=== PATIENT | male | born 1970 | race Caucasian/White ===

== ENCOUNTER 2020-12-05 13:01 | Emergency (ER) | payer OTHER ==
[2020-12-05] MEDS ORDERED: Sodium Chloride 0.9% 1,000 ML IV ONE (13:18)
[2020-12-05 13:20] VITALS: BP 125/84; PULSE 76
[2020-12-05 13:47] LABS: ANION GAP 17.5 mEq/L (7-13)
--- NOTE | 2020-12-05 13:47 | EDM.PDOC ---
ED HPI GENERAL MEDICAL PROBLEM - General Chief Complaint: Genitourinary Problem Stated Complaint: SIDE PAIN AND PASSING BLOOD [id number] Time Seen by Provider: 12/05/20 13:10 Source of Information: Reports: Patient History Limitations: Reports: No Limitations - History of Present Illness INITIAL COMMENTS - FREE TEXT/NARRATIVE: This 50 yo male patient reports to the ED with right sided lower back, right sided lower abdominal pain and blood in his urine. The patient reports his symptoms started today. The patient describes the paint an "annoying". The patient reports he did attempt to get an appointment in the Clinic, but was advised to go to the ED to be seen urgently. Onset: Today Duration: Hour(s):, Constant Location: Reports: Abdomen, Back Quality: Reports: Ache, Dull Severity: Moderate Improves with: Reports: None Worsens with: Reports: None Context: Reports: Other Associated Symptoms: Reports: No Other Symptoms Abdomen Pain Score (Numeric/FACES): 4 - Related Data Allergies Allergy/AdvReac Type Severity Reaction Status Date / Time amoxicillin Allergy Hives Verified 12/05/20 13:10 meperidine [From Demerol] Allergy Lightheaded Verified 12/05/20 13:10 ness Sulfa (Sulfonamide Allergy Hives Verified 12/05/20 13:10 Antibiotics) Home Meds: Home Meds Albuterol [Ventolin HFA] 2 puff INH Q4H PRN 09/04/14 [History] Fluticasone Propionate [Flonase] 2 spray INH DAILY 09/04/14 [History] Melatonin/Pyridoxine HCl (B6) [Melatonin 5 mg Tablet] 5 mg PO DAILY 09/04/14 [History] Aspirin [Aspirin EC] 325 mg PO DAILY 12/05/18 [History] Fexofenadine/Pseudoephedrine [Pam-D 12 Hour] 1 tab PO BID PRN 12/05/18 [History] Ibuprofen [Motrin] 800 mg PO Q6H PRN 12/05/18 [History] SUMAtriptan [Imitrex] 50 mg PO ASDIRECTED PRN 12/05/18 [History] Topiramate [Topamax] 25 mg PO ASDIRECTED 12/05/18 [History] Zolpidem Tartrate 5 mg PO BEDTIME 12/05/18 [History] traMADol HCl [Tramadol HCl] 50 mg PO Q6H PRN 12/05/18 [History] Past Medical History HEENT History: Reports: Allergic Rhinitis, Other (See Below) Other HEENT History: DEVIATED NASAL SEPTUM. NASAL POLYPS Cardiovascular History: Reports: High Cholesterol Respiratory History: Reports: Sleep Apnea Gastrointestinal History: Reports: Other (See Below) Other Gastrointestinal History: OCCULT BLOOD IN STOOL Genitourinary History: Reports: Renal Calculus, Other (See Below) Other Genitourinary History: KIDNEY STONE REMOVED Musculoskeletal History: Reports: Arthritis Neurological History: Reports: Migraines, Other (See Below) Other Neuro History: INSOMNIA Psychiatric History: Reports: None Endocrine/Metabolic History: Reports: [place]'s Disease, Obesity/BMI 30+ Hematologic History: Reports: None Immunologic History: Reports: None Oncologic (Cancer) History: Reports: None Dermatologic History: Reports: None - Infectious Disease History Infectious Disease History: Reports: Chicken Pox - Past Surgical History HEENT Surgical History: Reports: Naso-Sinus Surgery, Tonsillectomy Cardiovascular Surgical History: Reports: Other (See Below) Other Cardiovascular Surgeries/Procedures: ANGIOGRAM DUE TO BRADYCARDIA GI Surgical History: Reports: None Male Surgical History: Reports: None Endocrine Surgical History: Reports: None Musculoskeletal Surgical History: Reports: Arthroscopic Knee, Carpal Tunnel, Shoulder Surgery Other Musculoskeletal Surgeries/Procedures:: S/P TOE SURGERY RIGHT. S/P RIGHT HAND SURGERY. S/P CARPAL TUNNEL RELEASE RIGHT. S/P SHOULDER ARTHOSCOPY RIGHT. S/P MENISCUS REPAIR RIGHT KNEE Social & Family History - Family History Family Medical History: No Pertinent Family History - Caffeine Use Caffeine Use: Reports: Coffee, Soda Other Caffeine Use: 2 CUPS COFFEE. 1 CAN SODA DAILY ED ROS GENERAL - Review of Systems Review Of Systems: Comprehensive ROS is negative, except as noted in HPI. ED EXAM, RENAL/ - Physical Exam Exam: See Below Exam Limited By: No Limitations General Appearance: Alert, WD/WN, Moderate Distress Eye Exam: Bilateral Eye: EOMI, Normal Inspection, PERRL Ears: Normal External Exam, Normal Canal, Hearing Grossly Normal, Normal TMs Nose: Normal Inspection, Normal Mucosa, No Blood Throat/Mouth: Normal Inspection, Normal Lips, Normal Teeth, Normal Gums, Normal Oropharynx, Normal Voice, No Airway Compromise Head: Atraumatic, Normocephalic Neck: Normal Inspection, Supple, Non-Tender, Full Range of Motion Respiratory/Chest: No Respiratory Distress, Lungs Clear, Normal Breath Sounds, No Accessory Muscle Use, Chest Non-Tender Cardiovascular: Normal Peripheral Pulses, Regular Rate, Rhythm, No Edema, No Gallop, No JVD, No Murmur, No Rub GI/Abdominal: Tender (Right lower quadrant) (Male) Exam: Deferred Rectal (Males) Exam: Deferred Back Exam: CVA Tenderness (R) Extremities: Normal Inspection, Normal Range of Motion, Non-Tender, Normal Capillary Refill, No Pedal Edema Neurological: Alert, Oriented, CN II-XII Intact, Normal Cognition, Normal Gait, Normal Reflexes, No Motor/Sensory Deficits Psychiatric: Normal Affect, Normal Mood Skin Exam: Warm, Dry, Intact, Normal Color, No Rash Lymphatic: No Adenopathy Course - Vital Signs Last Recorded V/S: Last Vital Signs Temp 98.9 F 12/05/20 13:03 Pulse 76 12/05/20 13:03 Resp 16 12/05/20 13:03 BP 125/84 12/05/20 13:03 Pulse Ox 99 12/05/20 13:03 - Orders/Labs/Meds Orders: Active Orders 24 hr Category Date Time Status CULTURE BLOOD [BC] Stat Lab 12/05/20 13:11 Received LACTIC ACID [CHEM] Routine Lab 12/05/20 15:51 Ordered Labs: Laboratory Tests 12/05/20 12/05/20 12/05/20 Range/Units 13:11 13:11 13:11 WBC 5.0 (5.0-10.0) 10^3/uL RBC 5.00 (4.6-6.2) 10^6/uL Hgb 15.6 (14.0-18.0) g/dL Hct 43.4 (40.0-54.0) % MCV 86.8 (80-100) fL MCH 31.2 (27.0-34.0) pg MCHC 35.9 H (33.0-35.0) g/dL Plt Count 228 (150-450) 10^3/uL Neut % (Auto) 49.1 (42.2-75.2) % Lymph % (Auto) 40.7 (20.5-50.1) % Simpson % (Auto) 8.8 H (2-8) % Eos % (Auto) 0.8 L (1.0-3.0) % Baso % (Auto) 0.6 (0.0-1.0) % Sodium 141 (136-145) mmol/L Potassium 3.5 (3.5-5.1) mmol/L Chloride 107 (98-107) mmol/L Carbon Dioxide 20 L (21-32) mmol/L Anion Gap 17.5 H (7-13) mEq/L BUN 15 (7-18) mg/dL Creatinine 1.35 H (0.70-1.30) mg/dL Est Cr Clr Drug Dosing 58.42 mL/min Estimated GFR (MDRD) 56 BUN/Creatinine Ratio 11.1 (No establ ref range) Glucose 100 H (70-99) mg/dL Lactic Acid 2.2 H* (0.4-2.0) mmol/L Calcium 8.6 (8.5-10.1) mg/dL Total Bilirubin 0.7 (0.2-1.0) mg/dL AST 28 (15-37) U/L ALT 62 (16-63) U/L Alkaline Phosphatase 91 (46-116) U/L Total Protein 7.1 (6.4-8.2) g/dL Albumin 4.1 (3.4-5.0) g/dL Globulin 3.0 Albumin/Globulin Ratio 1.4 Urine Color (YELLOW) Urine Appearance (CLEAR) Urine pH (5.0-9.0) Ur Specific [place] (1.005-1.030) Urine Protein (NEGATIVE) Urine Glucose (UA) (NEGATIVE) Urine Ketones (NEGATIVE) Urine Occult Blood (NEGATIVE) Urine Nitrite (NEGATIVE) Urine Bilirubin (NEGATIVE) Urine Urobilinogen (0.2-1.0) mg/dL Ur Leukocyte Esterase (NEGATIVE) Urine RBC /HPF Urine WBC (0-5/HPF) /HPF Ur Epithelial Cells (NOT SEEN) /HPF Amorphous Sediment (NOT SEEN) /HPF Urine Bacteria (0-FEW/HPF) /HPF Urine Mucus (NOT SEEN) /LPF 12/05/20 Range/Units 14:51 WBC (5.0-10.0) 10^3/uL RBC (4.6-6.2) 10^6/uL Hgb (14.0-18.0) g/dL Hct (40.0-54.0) % MCV (80-100) fL MCH (27.0-34.0) pg MCHC (33.0-35.0) g/dL Plt Count (150-450) 10^3/uL Neut % (Auto) (42.2-75.2) % Lymph % (Auto) (20.5-50.1) % Simpson % (Auto) (2-8) % Eos % (Auto) (1.0-3.0) % Baso % (Auto) (0.0-1.0) % Sodium (136-145) mmol/L Potassium (3.5-5.1) mmol/L Chloride (98-107) mmol/L Carbon Dioxide (21-32) mmol/L Anion Gap (7-13) mEq/L BUN (7-18) mg/dL Creatinine (0.70-1.30) mg/dL Est Cr Clr Drug Dosing mL/min Estimated GFR (MDRD) BUN/Creatinine Ratio (No establ ref range) Glucose (70-99) mg/dL Lactic Acid (0.4-2.0) mmol/L Calcium (8.5-10.1) mg/dL Total Bilirubin (0.2-1.0) mg/dL AST (15-37) U/L ALT (16-63) U/L Alkaline Phosphatase (46-116) U/L Total Protein (6.4-8.2) g/dL Albumin (3.4-5.0) g/dL Globulin Albumin/Globulin Ratio Urine Color Yellow (YELLOW) Urine Appearance Turbid (CLEAR) Urine pH 6.0 (5.0-9.0) Ur Specific [place] 1.020 (1.005-1.030) Urine Protein 30 H (NEGATIVE) Urine Glucose (UA) Negative (NEGATIVE) Urine Ketones Negative (NEGATIVE) Urine Occult Blood Large H (NEGATIVE) Urine Nitrite Negative (NEGATIVE) Urine Bilirubin Negative (NEGATIVE) Urine Urobilinogen 0.2 (0.2-1.0) mg/dL Ur Leukocyte Esterase Negative (NEGATIVE) Urine RBC >100 H /HPF Urine WBC 0-5 (0-5/HPF) /HPF Ur Epithelial Cells Rare (NOT SEEN) /HPF Amorphous Sediment Moderate (NOT SEEN) /HPF Urine Bacteria Rare (0-FEW/HPF) /HPF Urine Mucus Rare (NOT SEEN) /LPF Meds: Medications Discontinued Medications Generic Name Dose Route Start Last Admin Trade Name Edie PRN Reason Stop Dose Admin Sodium Chloride 1,000 mls @ 999 mls/hr 12/05/20 13:18 12/05/20 13:18 Normal Saline IV 12/05/20 14:18 999 mls/hr .BOLUS ONE Administration Ketorolac Tromethamine 30 mg 12/05/20 14:52 12/05/20 15:04 Ketorolac 30 Mg/Ml Sdv IVPUSH 12/05/20 14:53 30 mg ONETIME ONE Administration Tamsulosin HCl 0.4 mg 12/05/20 14:52 12/05/20 15:03 Tamsulosin 0.4 Mg Cap.Er PO 12/05/20 14:53 0.4 mg ONETIME ONE Administration Departure - Departure Time of Disposition: 16:55 Disposition: Home, Self-Care 01 Condition: Fair Clinical Impression: Kidney stone - Discharge Information *PRESCRIPTION DRUG MONITORING PROGRAM REVIEWED*: Not Applicable *COPY OF PRESCRIPTION DRUG MONITORING REPORT IN PATIENT JOHN: Not Applicable Instructions: Kidney Stones, [id number] Forms: ED Department Discharge Care Plan Goals: The patient was advised of the examination, lab and CT results during the visit. The patient was given IV fluids, IV Toradol and an oral dose of Flomax while in the ED. The patient was discharged with a script for Toradol (10 mg) #20 to take 1 by mouth every 6 hours with food and Flomax (0.4 mg) #6 to take 1 by mouth daily for 10 days (starting tomorrow). The patient should follow-up with his primary care facility in about 1 week. If the patient has any additional symptoms or concerns, the patient should either return to the emergency department or visit his primary care facility. Sepsis Event Note (ED) - Focused Exam Vital Signs: Vital Signs Temp Pulse Resp BP Pulse Ox 12/05/20 13:03 98.9 F 76 16 125/84 99 - My Orders Last 24 Hours: My Active Orders 12/05/20 13:11 CULTURE BLOOD [BC] Stat 12/05/20 15:51 LACTIC ACID [CHEM] Routine - Assessment/Plan Last 24 Hours: My Active Orders 12/05/20 13:11 CULTURE BLOOD [BC] Stat 12/05/20 15:51 LACTIC ACID [CHEM] Routine
[2020-12-05] MEDS ORDERED: Ketorolac 30 MG/ML SDV IVPUSH ONE (14:52)
[2020-12-05] MEDS ORDERED: Tamsulosin 0.4 MG Cap.ER PO ONE (14:52)
--- NOTE | 2020-12-05 14:57 | CT ---
EXAMINATION: Abdomen Pelvis wo Cont SEX: Male AGE: 50 years CLINICAL HISTORY: 50-year-old 170 pound male with hematuria and right-sided"ache". Scan technique: Volume acquisition of data emergency unenhanced (renal stone study) CT exam of the abdomen and pelvis obtained with the patient lying supine on the Siemens multislice scanner [place], [place]. All data archived in the PACS system for storage, reformatting axial/sagittal/coronal planes and study. Interpretation: Abnormal. 1. Multiple calyceal calcifications identified in both kidneys and a large oval 4.0 x 7.0 mm in diameter calcification lodged at the ureteropelvic juncture asymptomatic left kidney. Punctate calcification prostate (urethra?) 2. No sign of ureteral calcifications or obstructive uropathy. No calcifications in the urinary bladder. 3. Gallbladder, inhomogeneously dense fatty liver, stomach, spleen, pancreas and adrenal glands anatomically correct. 4. No abdominal or pelvic mass lesion. No mesenteric or retroperitoneal lymphadenopathy. No inflammatory "dirty" peritoneal fat, signs of mechanical bowel obstruction, ascites or free intraperitoneal air. CONCLUSION: Bilateral nephrolithiasis. No current signs of obstructive uropathy.
== END 2020-12-05 17:14 | disposition home or self-care (01) ==
LOC: DL.ED 13:01
DX: N20.0 Calculus of kidney (principal); E78.00 Pure hypercholesterolemia, unspecified; E66.9 Obesity, unspecified; Z68.28 Body mass index [BMI] 28.0-28.9, adult; Z88.0 Allergy status to penicillin; Z88.2 Allergy status to sulfonamides; Z88.5 Allergy status to narcotic agent
CPT/HCPCS: 36415; 74176; 80053; 81001; 83605; 85025; 87040; 96374; 99284-25; A9270-GY; J1885; J7030

== ENCOUNTER 2022-01-22 09:11 | Emergency (ER) | payer OTHER ==
[2022-01-22 09:25] VITALS: BP 142/83; PULSE 60
== END 2022-01-22 09:35 ==
LOC: DL.ED 09:11
DX: Z53.21 Procedure and treatment not carried out due to patient leaving prior to being seen by health care provider (principal)

== ENCOUNTER 2022-07-13 11:58 | Emergency (ER) | payer OTHER ==
[2022-07-13] MEDS ORDERED: Sodium Chloride 0.9% 10 ML Syringe FLUSH PRN (12:29)
[2022-07-13] MEDS ORDERED: Sodium Chloride 0.9% 1,000 ML IV ONE (12:33)
[2022-07-13 13:18] LABS: ANION GAP 15.7 mEq/L (7-13)
[2022-07-13 13:28] LABS: CORONAVIRUS COVID-19 NAA NEGATIVE (NEGATIVE); RESPIRATORY SYNCYTIAL VIR NAA NEGATIVE (NEGATIVE)
[2022-07-13] MEDS ORDERED: Potassium Chloride 20 MEQ in Premix Bag 1 BAG IV ONE (13:41)
[2022-07-13] MEDS ORDERED: Lidocaine 1% 10 ML MDV ONE (13:44)
[2022-07-13] MEDS ORDERED: HYDROmorphone 0.5 MG/0.5 ML Syringe IVPUSH ONE (13:47)
[2022-07-13] MEDS ORDERED: Ondansetron 4 MG/2 ML SDV IV ONE (13:47)
[2022-07-13 15:05] VITALS: BP 139/86; PULSE 66
== END 2022-07-13 14:48 ==
LOC: DL.ED 11:58
DX: I62.9 Nontraumatic intracranial hemorrhage, unspecified (principal); E78.00 Pure hypercholesterolemia, unspecified; M19.90 Unspecified osteoarthritis, unspecified site; E66.9 Obesity, unspecified; Z68.31 Body mass index [BMI] 31.0-31.9, adult; Z79.82 Long term (current) use of aspirin; Z79.899 Other long term (current) drug therapy; Z88.0 Allergy status to penicillin; Z88.5 Allergy status to narcotic agent; Z88.2 Allergy status to sulfonamides; Z20.822 Contact with and (suspected) exposure to COVID-19
CPT/HCPCS: 0241U; 36415; 70450; 71045; 80053; 83605; 84484; 85025; 85730; 87081; 87430; 93005; 93010; 96361; 96365; 96375; 99285; J1170; J2405; J3480; J3490; J7030

== ENCOUNTER 2022-12-14 16:39 | Emergency (ER) | payer OTHER ==
[2022-12-14 17:03] VITALS: BP 133/79; PULSE 88
[2022-12-14 17:09] LABS: BASOPHILS PERCENT AUTO 0.4 % (0.0-1.0); EOSINOPHILS PERCENT AUTO 1.3 % (1.0-3.0); HEMATOCRIT 43.9 % (40.0-54.0); HEMOGLOBIN 15.3 g/dL (14.0-18.0); LYMPHOCYTES PERCENT AUTO 19.7 % (20.5-50.1); MEAN CORPUSCULAR HEMOGLOBIN 30.7 pg (27.0-34.0); MEAN CORPUSCULAR HGB CONC 34.9 g/dL (33.0-35.0); MEAN CORPUSCULAR VOLUME 88.2 fL (80-100); MONOCYTES PERCENT AUTO 12.2 % (2-8); NEUTROPHILS PERCENT AUTO 66.4 % (42.2-75.2); PLATELET COUNT,PLT 250 10^3/uL (150-450); RED BLOOD CELL COUNT 4.98 10^6/uL (4.6-6.2); WHITE BLOOD CELL COUNT,WBC 5.3 10^3/uL (5.0-10.0)
[2022-12-14] MEDS: levETIRAcetam in NaCl (iso-os) 1,500 MG in Premix Bag 1 BAG IV ONE ×2 (17:18)
[2022-12-14] MEDS: Sodium Chloride 0.9% 10 ML Syringe FLUSH PRN (17:18)
[2022-12-14] MEDS: Sodium Chloride 0.9% 1,000 ML IV ONE (17:18)
[2022-12-14] MEDS: Ondansetron 4 MG/2 ML SDV IVPUSH ONE (17:18)
[2022-12-14 17:31] LABS: LACTIC ACID 1.1 mmol/L (0.4-2.0)
[2022-12-14 17:38] LABS: ALBUMIN 3.8 g/dL (3.4-5.0); BILIRUBIN TOTAL 0.5 mg/dL (0.2-1.0); BUN/CREATININE RATIO 14.6 (No establ ref range); CALCIUM 9.3 mg/dL (8.5-10.1); CREATININE 1.3 mg/dL (0.70-1.30); EST CRCL DRUG DOSING (CG) 57.16 mL/min; MAGNESIUM 2.3 mg/dL (1.8-2.4); PROTEIN TOTAL,TP 7.5 g/dL (6.4-8.2)
[2022-12-14 17:41] LABS: INR 0.9 (0.9-1.2); PROTHROMBIN TIME 9.3 SEC (9.0-12.0); PTT,PARTIAL THROMBOPLSTIN TIME 27.6 SEC (22.0-34.0)
== END 2022-12-14 18:03 ==
LOC: DL.ED 16:39
DX: R56.9 Unspecified convulsions (principal); E66.9 Obesity, unspecified; Z68.32 Body mass index [BMI] 32.0-32.9, adult; Z79.899 Other long term (current) drug therapy; Z88.0 Allergy status to penicillin; Z88.5 Allergy status to narcotic agent; Z88.2 Allergy status to sulfonamides
CPT/HCPCS: 36415; 80053; 83605; 83735; 85025; 85610; 85730; 96365; 96375; 99284; 99285-25; J1953; J2405; J3490; J7030

== ENCOUNTER 2022-12-18 01:04 | Emergency (ER) | payer OTHER ==
[2022-12-18 01:09] VITALS: BP 148/95
[2022-12-18 01:11] VITALS: PULSE 72
[2022-12-18 01:29] LABS: BASOPHILS PERCENT AUTO 0.2 % (0.0-1.0); HEMATOCRIT 41.8 % (40.0-54.0); HEMOGLOBIN 14.8 g/dL (14.0-18.0); LYMPHOCYTES PERCENT AUTO 22.4 % (20.5-50.1); MEAN CORPUSCULAR HGB CONC 35.4 g/dL (33.0-35.0); MEAN CORPUSCULAR VOLUME 87.4 fL (80-100); MONOCYTES PERCENT AUTO 16.7 % (2-8); NEUTROPHILS PERCENT AUTO 60.7 % (42.2-75.2); PLATELET COUNT,PLT 271 10^3/uL (150-450); RED BLOOD CELL COUNT 4.78 10^6/uL (4.6-6.2); WHITE BLOOD CELL COUNT,WBC 4.6 10^3/uL (5.0-10.0)
[2022-12-18 01:56] LABS: A/G RATIO 0.9; ALBUMIN 3.8 g/dL (3.4-5.0); ANION GAP 15.2 mEq/L (7-13); BILIRUBIN TOTAL 0.4 mg/dL (0.2-1.0); BUN/CREATININE RATIO 16.8 (No establ ref range); C-REACTIVE PROTEIN 2.2 mg/dL (0.0-0.9); CALCIUM 9.5 mg/dL (8.5-10.1); CREATININE 1.13 mg/dL (0.70-1.30); EST CRCL DRUG DOSING (CG) 65.76 mL/min; MAGNESIUM 2.3 mg/dL (1.8-2.4); POTASSIUM,K 4.2 mmol/L (3.5-5.1); PROTEIN TOTAL,TP 7.8 g/dL (6.4-8.2)
[2022-12-18 01:57] LABS: LACTIC ACID 2.1 mmol/L (0.4-2.0)
[2022-12-18] MEDS: Sodium Chloride 0.9% 1,000 ML IV ONE (02:09)
[2022-12-18 02:10] LABS: PHOSPHORUS 2.9 mg/dL (2.6-4.7); TSH ULTRASENSITIVE 1.65 uIU/mL (0.36-3.74)
[2022-12-18 02:42] LABS: APPEARANCE,URINE CLEAR (CLEAR); BILIRUBIN,URINE NEGATIVE (NEGATIVE); COLOR,URINE YELLOW (YELLOW); GLUCOSE,URINE NEGATIVE (NEGATIVE); KETONES,URINE NEGATIVE (NEGATIVE); LEUKOCYTE ESTERASE,URINE NEGATIVE (NEGATIVE); NITRITE,URINE NEGATIVE (NEGATIVE); OCCULT BLOOD,URINE TRACE-INTACT (NEGATIVE); PROTEIN,URINE NEGATIVE (NEGATIVE)
[2022-12-18 02:49] LABS: AMORPHOUS SEDIMENT,URINE FEW /HPF (NOT SEEN); BACTERIA,URINE RARE /HPF (0-FEW/HPF); EPITHELIAL CELLS,URINE RARE /HPF (NOT SEEN); MUCUS,URINE RARE /LPF (NOT SEEN); RBC,URINE 0-5 /HPF (0-5); WBC,URINE 0-5 /HPF (0-5/HPF)
== END 2022-12-18 03:00 | disposition home or self-care (01) ==
LOC: DL.ED 01:04
DX: R56.9 Unspecified convulsions (principal); E66.9 Obesity, unspecified; Z68.33 Body mass index [BMI] 33.0-33.9, adult; Z88.0 Allergy status to penicillin; Z88.5 Allergy status to narcotic agent; Z88.2 Allergy status to sulfonamides; Z79.899 Other long term (current) drug therapy
CPT/HCPCS: 36415; 80053; 81001; 83605; 83735; 84100; 84443; 85025; 86140; 86308; 93005; 93010; 99284; J7030

== ENCOUNTER 2022-12-29 11:50 | Emergency (ER) | payer OTHER ==
[2022-12-29 12:22] VITALS: BP 145/83; PULSE 63
[2022-12-29] MEDS ORDERED: Dexamethasone 4 MG/ML SDV IVPUSH ONE (12:46)
[2022-12-29] MEDS ORDERED: Metoclopramide 10 MG/2 ML SDV IVPUSH ONE (12:48)
[2022-12-29] MEDS ORDERED: Sodium Chloride 0.9% 10 ML Syringe FLUSH PRN (12:49)
[2022-12-29] MEDS ORDERED: levETIRAcetam in NaCl (iso-os) 1,500 MG in Premix Bag 1 BAG IV ONE ×2 (12:49)
== END 2022-12-29 14:21 | disposition home or self-care (01) ==
LOC: DL.ED 11:50
DX: G40.909 Epilepsy, unspecified, not intractable, without status epilepticus (principal); R11.2 Nausea with vomiting, unspecified; R53.1 Weakness; Z85.841 Personal history of malignant neoplasm of brain; E66.9 Obesity, unspecified; Z68.30 Body mass index [BMI] 30.0-30.9, adult; Z88.0 Allergy status to penicillin; Z88.5 Allergy status to narcotic agent; Z88.2 Allergy status to sulfonamides; Z79.899 Other long term (current) drug therapy
CPT/HCPCS: 96365; 96375; 99283; 99284; J1100; J1953; J2765; J3490

== ENCOUNTER 2023-01-09 10:44 | Emergency (ER) | payer OTHER ==
[2023-01-09 10:54] VITALS: BP 118/102; PULSE 106
[2023-01-09] MEDS: Sodium Chloride 0.9% 10 ML Syringe FLUSH PRN (11:07)
[2023-01-09 11:13] LABS: BASOPHILS PERCENT AUTO 0.1 % (0.0-1.0); HEMATOCRIT 53.9 % (40.0-54.0); HEMOGLOBIN 19.8 g/dL (14.0-18.0); LYMPHOCYTES PERCENT AUTO 6.3 % (20.5-50.1); MEAN CORPUSCULAR HEMOGLOBIN 31.1 pg (27.0-34.0); MEAN CORPUSCULAR HGB CONC 36.7 g/dL (33.0-35.0); MEAN CORPUSCULAR VOLUME 84.6 fL (80-100); MONOCYTES PERCENT AUTO 6.9 % (2-8); NEUTROPHILS PERCENT AUTO 86.7 % (42.2-75.2); PLATELET COUNT,PLT 172 10^3/uL (150-450); RED BLOOD CELL COUNT 6.37 10^6/uL (4.6-6.2); WHITE BLOOD CELL COUNT,WBC 23.2 10^3/uL (5.0-10.0)
[2023-01-09 11:28] LABS: PROTHROMBIN TIME 10.2 SEC (9.0-12.0)
[2023-01-09] MEDS: levETIRAcetam in NaCl (iso-os) 1,500 MG in Premix Bag 1 BAG IV ONE ×2 (11:29)
[2023-01-09] MEDS: Acetaminophen 500 MG Tab PO ONE (11:29)
[2023-01-09] MEDS: Metoclopramide 10 MG/2 ML SDV IVPUSH ONE (11:29)
[2023-01-09] MEDS: Sodium Chloride 0.9% 1,000 ML IV ONE ×2 (11:30→12:29)
[2023-01-09 11:39] LABS: ALBUMIN 3.1 g/dL (3.4-5.0); BILIRUBIN TOTAL 1.2 mg/dL (0.2-1.0); BUN/CREATININE RATIO 21.1 (No establ ref range); CALCIUM 8.6 mg/dL (8.5-10.1); CREATININE 1.28 mg/dL (0.70-1.30); EST CRCL DRUG DOSING (CG) 58.06 mL/min; PROTEIN TOTAL,TP 6.8 g/dL (6.4-8.2)
[2023-01-09 11:40] LABS: A/G RATIO 0.84; C-REACTIVE PROTEIN 19.5 mg/dL (0.0-0.9); LACTIC ACID 3.4 mmol/L (0.4-2.0)
[2023-01-09] MEDS: Iopamidol 612 MG/ML 100 ML Bottle IVPUSH ONE (11:58)
[2023-01-09] MEDS: metroNIDAZOLE/Normal Saline 500 MG in Premix Bag 1 BAG IV ONE (12:29)
[2023-01-09] MEDS: Ciprofloxacin in D5W 400 MG in Premix Bag 1 BAG IV ONE ×2 (12:44)
[2023-01-09 13:24] LABS: APPEARANCE,URINE CLEAR (CLEAR); BILIRUBIN,URINE NEGATIVE (NEGATIVE); COLOR,URINE YELLOW (YELLOW); GLUCOSE,URINE NEGATIVE (NEGATIVE); KETONES,URINE NEGATIVE (NEGATIVE); LEUKOCYTE ESTERASE,URINE NEGATIVE (NEGATIVE); NITRITE,URINE NEGATIVE (NEGATIVE); OCCULT BLOOD,URINE SMALL (NEGATIVE); PROTEIN,URINE NEGATIVE (NEGATIVE); UROBILINOGEN,URINE 0.2 mg/dL (0.2-1.0)
[2023-01-09 13:43] LABS: BACTERIA,URINE FEW /HPF (0-FEW/HPF); EPITHELIAL CELLS,URINE RARE /HPF (NOT SEEN); MUCUS,URINE FEW /LPF (NOT SEEN); WBC,URINE 0-5 /HPF (0-5/HPF)
== END 2023-01-09 13:17 ==
LOC: DL.ED 10:44
DX: K52.9 Noninfective gastroenteritis and colitis, unspecified (principal); E87.20 Acidosis, unspecified; D72.829 Elevated white blood cell count, unspecified; E78.00 Pure hypercholesterolemia, unspecified; E66.9 Obesity, unspecified; Z86.16 Personal history of COVID-19; Z88.0 Allergy status to penicillin; Z88.5 Allergy status to narcotic agent; Z88.2 Allergy status to sulfonamides; Z68.31 Body mass index [BMI] 31.0-31.9, adult
CPT/HCPCS: 36415; 74177; 80053; 81001; 82150; 83605; 83690; 83735; 85025; 85610; 86140; 96365; 96368; 96375; 99285; 99285-25; A9270-GY; J0744; J1953; J2765; J3490; J7030; Q9967

== ENCOUNTER 2023-01-27 16:14 | Inpatient (IN) | payer OTHER ==
[2023-01-27 17:11] LABS: BASOPHILS PERCENT AUTO 0.3 % (0.0-1.0); EOSINOPHILS PERCENT AUTO 0.5 % (1.0-3.0); HEMATOCRIT 38.9 % (40.0-54.0); HEMOGLOBIN 13.3 g/dL (14.0-18.0); LYMPHOCYTES PERCENT AUTO 30.4 % (20.5-50.1); MEAN CORPUSCULAR HEMOGLOBIN 31.2 pg (27.0-34.0); MEAN CORPUSCULAR HGB CONC 34.2 g/dL (33.0-35.0); MEAN CORPUSCULAR VOLUME 91.3 fL (80-100); MONOCYTES PERCENT AUTO 14.9 % (2-8); NEUTROPHILS PERCENT AUTO 53.9 % (42.2-75.2); PLATELET COUNT,PLT 211 10^3/uL (150-450); RED BLOOD CELL COUNT 4.26 10^6/uL (4.6-6.2); WHITE BLOOD CELL COUNT,WBC 3.9 10^3/uL (5.0-10.0)
[2023-01-27 17:32] LABS: ALBUMIN 2.6 g/dL (3.4-5.0); ANION GAP 12.9 mEq/L (7-13); BILIRUBIN TOTAL 0.4 mg/dL (0.2-1.0); BUN/CREATININE RATIO 12.7 (No establ ref range); CALCIUM 8.6 mg/dL (8.5-10.1); CREATININE 1.1 mg/dL (0.70-1.30); EST CRCL DRUG DOSING (CG) 75.14 mL/min; POTASSIUM,K 3.9 mmol/L (3.5-5.1); PROTEIN TOTAL,TP 5.4 g/dL (6.4-8.2)
[2023-01-27 17:36] LABS: A/G RATIO 0.93
[2023-01-27] MEDS: Sodium Chloride 0.9% 10 ML Syringe FLUSH PRN (17:40)
[2023-01-27] MEDS ORDERED: levETIRAcetam in NaCl (iso-os) 1,000 MG in Premix Bag 1 BAG IV ONE ×2 (17:50)
[2023-01-27] MEDS ORDERED: SUMAtriptan 6 MG/0.5 ML SDV SUBCUT ONE (19:26)
[2023-01-27 20:17] LABS: APPEARANCE,URINE CLEAR (CLEAR); BILIRUBIN,URINE NEGATIVE (NEGATIVE); COLOR,URINE YELLOW (YELLOW); GLUCOSE,URINE NEGATIVE (NEGATIVE); KETONES,URINE NEGATIVE (NEGATIVE); LEUKOCYTE ESTERASE,URINE NEGATIVE (NEGATIVE); NITRITE,URINE NEGATIVE (NEGATIVE); OCCULT BLOOD,URINE TRACE-INTACT (NEGATIVE); PH,URINE 7.5 (5.0-9.0); PROTEIN,URINE 30 (NEGATIVE); UROBILINOGEN,URINE 0.2 mg/dL (0.2-1.0)
[2023-01-27] MEDS ORDERED: Dexamethasone 4 MG/ML SDV IVPUSH ONE ×2 (20:18→22:43)
[2023-01-27 20:21] LABS: AMPHETAMINES,URINE NEGATIVE (NEGATIVE); BARBITURATES,URINE NEGATIVE (NEGATIVE); BENZODIAZEPINE,URINE POSITIVE (NEGATIVE); MDMA (ECSTASY), URINE NEGATIVE (NEGATIVE); METHADONE,URINE NEGATIVE (NEGATIVE); METHAMPHETAMINES,URINE NEGATIVE (NEGATIVE); OPIATES,URINE NEGATIVE (NEGATIVE); OXYCODONE,URINE NEGATIVE (NEGATIVE); PHENCYCLIDINE,URINE NEGATIVE (NEGATIVE); TCA,URINE NEGATIVE (NEGATIVE)
[2023-01-27 20:27] LABS: WBC,URINE 0-5 /HPF (0-5/HPF)
[2023-01-27 20:28] LABS: BACTERIA,URINE RARE /HPF (0-FEW/HPF); EPITHELIAL CELLS,URINE RARE /HPF (NOT SEEN); RBC,URINE 0-5 /HPF (0-5)
[2023-01-27] MEDS ORDERED: Naloxone 2 MG/2 ML Syringe IVPUSH PRN (22:27)
[2023-01-27] MEDS ORDERED: Acetaminophen/oxyCODONE 325-5 MG Tab PO PRN (22:27)
[2023-01-27] MEDS ORDERED: Albuterol/Ipratropium 3.0-0.5 MG/3 ML Neb Soln NEB PRN (22:27)
[2023-01-27] MEDS ORDERED: Sennosides/Docusate Sodium 50-8.6 MG Tab PO PRN (22:27)
[2023-01-27] MEDS ORDERED: Magnesium Hydroxide 400 MG/5 ML Susp 30 ML Cup PO PRN (22:27)
[2023-01-27] MEDS ORDERED: Polyethylene Glycol 3350 Powder 17 GM Packet PO PRN (22:27)
[2023-01-27] MEDS ORDERED: LORazepam 2 MG/ML SDV IVPUSH PRN (22:39)
[2023-01-27] MEDS ORDERED: Flumazenil 0.1 MG/ML 5 ML MDV IVPUSH PRN (22:39)
[2023-01-27] MEDS ORDERED: Metoprolol Tartrate 5 MG/5 ML SDV IVPUSH PRN (22:39)
[2023-01-27] MEDS ORDERED: hydrALAZINE 20 MG/ML SDV IVPUSH PRN (22:39)
[2023-01-27] MEDS ORDERED: levETIRAcetam in NaCl (iso-os) 500 MG in Premix Bag 1 BAG IV ONE ×2 (22:40)
[2023-01-27 23:21] LABS: T4 FREE 1.13 ng/dL (0.76-1.46); TSH ULTRASENSITIVE 1.27 uIU/mL (0.36-3.74)
[2023-01-27] MEDS ORDERED: MVI, Adult with Vitamin K 10 ML, Folic Acid 1 MG, Thiamine 100 MG in Lactated Ringers 1... IV ONE ×4 (23:28)
[2023-01-28] MEDS: Ondansetron 4 MG/2 ML SDV IVPUSH PRN ×4 (00:41→20:44)
[2023-01-28] MEDS: HYDROmorphone 0.5 MG/0.5 ML Syringe IVPUSH PRN ×2 (02:48→07:04)
[2023-01-28] MEDS ORDERED: Dexamethasone 4 MG/ML SDV IVPUSH ONE (03:15)
[2023-01-28 06:23] LABS: HEMATOCRIT 42.4 % (40.0-54.0); HEMOGLOBIN 14.6 g/dL (14.0-18.0); LYMPHOCYTES PERCENT AUTO 12.5 % (20.5-50.1); MEAN CORPUSCULAR HEMOGLOBIN 30.7 pg (27.0-34.0); MEAN CORPUSCULAR HGB CONC 34.4 g/dL (33.0-35.0); MEAN CORPUSCULAR VOLUME 89.3 fL (80-100); MONOCYTES PERCENT AUTO 3.9 % (2-8); NEUTROPHILS PERCENT AUTO 83.6 % (42.2-75.2); PLATELET COUNT,PLT 246 10^3/uL (150-450); RED BLOOD CELL COUNT 4.75 10^6/uL (4.6-6.2); WHITE BLOOD CELL COUNT,WBC 4.1 10^3/uL (5.0-10.0)
[2023-01-28 06:42] LABS: ALBUMIN 2.8 g/dL (3.4-5.0); ANION GAP 10.3 mEq/L (7-13); BILIRUBIN TOTAL 0.6 mg/dL (0.2-1.0); BUN/CREATININE RATIO 13.4 (No establ ref range); CREATININE 0.82 mg/dL (0.70-1.30); EST CRCL DRUG DOSING (CG) 100.79 mL/min; MAGNESIUM 1.9 mg/dL (1.8-2.4); POTASSIUM,K 4.3 mmol/L (3.5-5.1); PROTEIN TOTAL,TP 6.3 g/dL (6.4-8.2)
[2023-01-28 06:49] LABS: A/G RATIO 0.8
[2023-01-28] MEDS ORDERED: Dexamethasone 4 MG/ML SDV IVPUSH SCH (09:00)
[2023-01-28] MEDS ORDERED: Take Home: levETIRAcetam 500 MG Tab, 4 Tab Pack PO SCH (09:00)
[2023-01-28] MEDS ORDERED: LACOSAMIDE 100 MG PO SCH (09:00)
[2023-01-28] MEDS ORDERED: Ibuprofen 600 MG Tab PO PRN (09:15)
[2023-01-28] MEDS ORDERED: HYDROmorphone 2 MG/ML Syringe IVPUSH PRN (09:35)
[2023-01-28] MEDS ORDERED: Valproate Sodium 1,000 MG in Sodium Chloride 0.9% 100 ML IV ONE (11:48)
[2023-01-28] MEDS: levETIRAcetam 500 MG Tab PO SCH ×2 (13:20→21:06)
[2023-01-28] MEDS: Sodium Chloride 0.9% 10 ML Syringe FLUSH PRN (13:22)
[2023-01-28] MEDS: Acetaminophen/Butalbital/Caffeine 325-50-40 MG Tab PO PRN ×2 (13:30→21:01)
[2023-01-28] MEDS ORDERED: SUMATRIPTAN SUCCINATE 50 MG PO PRN (15:39)
[2023-01-28] MEDS ORDERED: Prochlorperazine 5 MG Tab PO PRN (16:02)
[2023-01-28] MEDS: Dexamethasone 2 MG Tab PO SCH (17:50)
[2023-01-28] MEDS: Divalproex Sodium 250 MG Tab.ER PO SCH (21:07)
[2023-01-28] MEDS: LACOSAMIDE 100 MG PO SCH (21:09)
[2023-01-28] MEDS: TEMOZOLOMIDE 140 MG PO SCH (21:10)
[2023-01-28] MEDS: TEMOZOLOMIDE 250 MG PO SCH (21:11)
[2023-01-28] MEDS: TEMOZOLOMIDE 20 MG PO SCH (21:11)
[2023-01-28] MEDS: Sennosides/Docusate Sodium 50-8.6 MG Tab PO SCH (21:14)
[2023-01-29 06:15] LABS: BASOPHILS PERCENT AUTO 0.2 % (0.0-1.0); EOSINOPHILS PERCENT AUTO 0.2 % (1.0-3.0); HEMATOCRIT 43.1 % (40.0-54.0); HEMOGLOBIN 14.7 g/dL (14.0-18.0); LYMPHOCYTES PERCENT AUTO 18.6 % (20.5-50.1); MEAN CORPUSCULAR HEMOGLOBIN 30.9 pg (27.0-34.0); MEAN CORPUSCULAR HGB CONC 34.1 g/dL (33.0-35.0); MEAN CORPUSCULAR VOLUME 90.5 fL (80-100); MONOCYTES PERCENT AUTO 10.5 % (2-8); NEUTROPHILS PERCENT AUTO 70.5 % (42.2-75.2); PLATELET COUNT,PLT 220 10^3/uL (150-450); RED BLOOD CELL COUNT 4.76 10^6/uL (4.6-6.2); WHITE BLOOD CELL COUNT,WBC 5.7 10^3/uL (5.0-10.0)
[2023-01-29 06:33] LABS: ALBUMIN 2.7 g/dL (3.4-5.0); ANION GAP 12.6 mEq/L (7-13); BILIRUBIN TOTAL 0.5 mg/dL (0.2-1.0); CALCIUM 9.3 mg/dL (8.5-10.1); EST CRCL DRUG DOSING (CG) 82.65 mL/min; MAGNESIUM 2.2 mg/dL (1.8-2.4); POTASSIUM,K 4.6 mmol/L (3.5-5.1); PROTEIN TOTAL,TP 6.3 g/dL (6.4-8.2)
[2023-01-29 06:36] LABS: A/G RATIO 0.75
[2023-01-29] MEDS: levETIRAcetam 500 MG Tab PO SCH ×2 (08:21→20:44)
[2023-01-29] MEDS: Dexamethasone 2 MG Tab PO SCH ×3 (08:21→17:22)
[2023-01-29] MEDS: LACOSAMIDE 100 MG PO SCH ×2 (08:29→20:43)
[2023-01-29] MEDS ORDERED: Cholecalciferol (Vitamin D3) 25 MCG Tab PO ONE (09:37)
[2023-01-29] MEDS: Acetaminophen 325 MG Tab PO PRN (16:39)
[2023-01-29] MEDS: Acetaminophen/Butalbital/Caffeine 325-50-40 MG Tab PO PRN (17:33)
[2023-01-29] MEDS: TEMOZOLOMIDE 250 MG PO SCH (20:42)
[2023-01-29] MEDS: TEMOZOLOMIDE 20 MG PO SCH (20:43)
[2023-01-29] MEDS: TEMOZOLOMIDE 140 MG PO SCH (20:44)
[2023-01-29] MEDS: Divalproex Sodium 250 MG Tab.ER PO SCH (20:44)
[2023-01-29] MEDS: Sennosides/Docusate Sodium 50-8.6 MG Tab PO SCH (20:45)
[2023-01-30 06:34] LABS: BASOPHILS PERCENT AUTO 0.2 % (0.0-1.0); HEMOGLOBIN 14.3 g/dL (14.0-18.0); LYMPHOCYTES PERCENT AUTO 24.6 % (20.5-50.1); MEAN CORPUSCULAR VOLUME 90.9 fL (80-100); MONOCYTES PERCENT AUTO 10.2 % (2-8); PLATELET COUNT,PLT 181 10^3/uL (150-450); RED BLOOD CELL COUNT 4.62 10^6/uL (4.6-6.2); WHITE BLOOD CELL COUNT,WBC 5.4 10^3/uL (5.0-10.0)
[2023-01-30 06:59] LABS: ALBUMIN 2.7 g/dL (3.4-5.0); ANION GAP 12.1 mEq/L (7-13); BILIRUBIN TOTAL 0.3 mg/dL (0.2-1.0); BUN/CREATININE RATIO 22.1 (No establ ref range); CREATININE 0.95 mg/dL (0.70-1.30); POTASSIUM,K 4.1 mmol/L (3.5-5.1); PROTEIN TOTAL,TP 6.1 g/dL (6.4-8.2)
[2023-01-30 07:03] LABS: A/G RATIO 0.79
[2023-01-30] MEDS: LACOSAMIDE 100 MG PO SCH ×2 (08:41→21:18)
[2023-01-30] MEDS: levETIRAcetam 500 MG Tab PO SCH ×2 (08:41→21:17)
[2023-01-30] MEDS: Dexamethasone 2 MG Tab PO SCH ×3 (08:41→16:46)
[2023-01-30] MEDS: Divalproex Sodium 250 MG Tab.ER PO SCH (21:18)
[2023-01-30] MEDS: TEMOZOLOMIDE 20 MG PO SCH (21:20)
[2023-01-30] MEDS: TEMOZOLOMIDE 250 MG PO SCH (21:20)
[2023-01-30] MEDS: TEMOZOLOMIDE 140 MG PO SCH (21:21)
[2023-01-30] MEDS: Sennosides/Docusate Sodium 50-8.6 MG Tab PO SCH (21:22)
[2023-01-31] MEDS: Acetaminophen 325 MG Tab PO PRN (03:13)
[2023-01-31] MEDS: Dexamethasone 2 MG Tab PO SCH ×3 (07:44→17:10)
[2023-01-31] MEDS: LACOSAMIDE 100 MG PO SCH ×2 (09:08→21:13)
[2023-01-31] MEDS: levETIRAcetam 500 MG Tab PO SCH ×2 (09:14→21:15)
[2023-01-31] MEDS ORDERED: Cholecalciferol (Vitamin D3) 25 MCG Tab PO ONE (10:44)
[2023-01-31] MEDS: Sennosides/Docusate Sodium 50-8.6 MG Tab PO SCH (21:14)
[2023-01-31] MEDS: Divalproex Sodium 250 MG Tab.ER PO SCH (21:15)
[2023-01-31] MEDS: TEMOZOLOMIDE 20 MG PO SCH (21:16)
[2023-01-31] MEDS: TEMOZOLOMIDE 250 MG PO SCH (21:17)
[2023-01-31] MEDS: TEMOZOLOMIDE 140 MG PO SCH (21:17)
[2023-02-01] MEDS: Dexamethasone 2 MG Tab PO SCH ×3 (07:43→09:43)
[2023-02-01 08:12] VITALS: BP 120/78; PULSE 65
[2023-02-01] MEDS: levETIRAcetam 500 MG Tab PO SCH ×2 (08:44→09:44)
[2023-02-01] MEDS: LACOSAMIDE 100 MG PO SCH ×2 (08:45→09:43)
[2023-02-01] MEDS ORDERED: Cholecalciferol (Vitamin D3) 25 MCG Tab PO SCH (09:00)
[2023-02-01] MEDS: Divalproex Sodium 250 MG Tab.ER PO SCH (09:45)
[2023-02-04] MEDS ORDERED: Divalproex Sodium 250 MG Tab.ER PO SCH (09:00)
== END 2023-02-01 10:21 | disposition swing bed (61) | DRG 101 ==
LOC: DL.ED 16:14 → DL.MS 22:10
PROVIDERS: ADMIT Internal Medicine; ATTEND Internal Medicine
DX: G40.101 Localization-related (focal) (partial) symptomatic epilepsy and epileptic syndromes with simple partial seizures, not intractable, with status epilepticus (principal); E87.1 Hypo-osmolality and hyponatremia; E78.00 Pure hypercholesterolemia, unspecified; M19.90 Unspecified osteoarthritis, unspecified site; E66.9 Obesity, unspecified; I10 Essential (primary) hypertension; G47.33 Obstructive sleep apnea (adult) (pediatric); G43.009 Migraine without aura, not intractable, without status migrainosus; R73.9 Hyperglycemia, unspecified; E88.09 Other disorders of plasma-protein metabolism, not elsewhere classified; D50.9 Iron deficiency anemia, unspecified; E55.9 Vitamin D deficiency, unspecified; Z88.1 Allergy status to other antibiotic agents; Z68.31 Body mass index [BMI] 31.0-31.9, adult; Z88.2 Allergy status to sulfonamides; Z88.8 Allergy status to other drugs, medicaments and biological substances; Z79.899 Other long term (current) drug therapy; Z87.442 Personal history of urinary calculi; Z90.89 Acquired absence of other organs; Z98.890 Other specified postprocedural states; Z88.0 Allergy status to penicillin
CPT/HCPCS: 36415; 51702; 70496; 80053; 80177; 80305-QW; 81001; 82306; 83735; 84439; 84443; 85025; 93005; 93010; 94010; 96365; 96366; 96372; 96375; 97112-GO; 97161-GP; 97166-GO; 99223; 99232; 99233; 99238; 99284; 99285-25; A9270-GY; J1100; J1170; J1953; J2405; J3030; J3411; J3490; J7120; J8540

== ENCOUNTER 2023-02-01 09:02 | Inpatient (IN) | payer OTHER ==
[2023-02-01] MEDS ORDERED: LORazepam 2 MG/ML SDV IVPUSH PRN (12:18)
[2023-02-01] MEDS ORDERED: Acetaminophen/oxyCODONE 325-5 MG Tab PO PRN (12:18)
[2023-02-01] MEDS ORDERED: Acetaminophen 325 MG Tab PO PRN (12:18)
[2023-02-01] MEDS ORDERED: Naloxone 2 MG/2 ML Syringe IVPUSH PRN (12:18)
[2023-02-01] MEDS ORDERED: Prochlorperazine 5 MG Tab PO PRN (12:18)
[2023-02-01] MEDS ORDERED: Ondansetron 4 MG/2 ML SDV IVPUSH PRN (12:18)
[2023-02-01] MEDS ORDERED: Ibuprofen 600 MG Tab PO PRN (12:18)
[2023-02-01] MEDS ORDERED: Magnesium Hydroxide 400 MG/5 ML Susp 30 ML Cup PO PRN (12:18)
[2023-02-01] MEDS ORDERED: Sodium Chloride 0.9% 10 ML Syringe FLUSH PRN (12:18)
[2023-02-01] MEDS ORDERED: Polyethylene Glycol 3350 Powder 17 GM Packet PO PRN (12:18)
[2023-02-01] MEDS ORDERED: Acetaminophen/Butalbital/Caffeine 325-50-40 MG Tab PO PRN (12:18)
[2023-02-01] MEDS ORDERED: Albuterol/Ipratropium 3.0-0.5 MG/3 ML Neb Soln NEB PRN (12:18)
[2023-02-01] MEDS: Dexamethasone 2 MG Tab PO SCH (16:50)
[2023-02-01] MEDS: Divalproex Sodium 250 MG Tab.ER PO SCH (20:40)
[2023-02-01] MEDS: LACOSAMIDE 100 MG PO SCH (20:40)
[2023-02-01] MEDS: levETIRAcetam 500 MG Tab PO SCH (20:40)
[2023-02-01] MEDS ORDERED: Sodium Chloride 0.9% 10 ML Syringe FLUSH SCH (21:00)
[2023-02-01] MEDS: Sennosides/Docusate Sodium 50-8.6 MG Tab PO SCH (22:33)
[2023-02-02] MEDS: levETIRAcetam 500 MG Tab PO SCH ×2 (08:26→20:41)
[2023-02-02] MEDS: Dexamethasone 2 MG Tab PO SCH ×3 (08:26→17:04)
[2023-02-02] MEDS: Cholecalciferol (Vitamin D3) 25 MCG Tab PO SCH (08:26)
[2023-02-02] MEDS: LACOSAMIDE 100 MG PO SCH ×2 (08:27→20:43)
[2023-02-02] MEDS: Divalproex Sodium 250 MG Tab.ER PO SCH (20:41)
[2023-02-02] MEDS: Sennosides/Docusate Sodium 50-8.6 MG Tab PO SCH (20:46)
[2023-02-03] MEDS: Cholecalciferol (Vitamin D3) 25 MCG Tab PO SCH (08:08)
[2023-02-03] MEDS: Dexamethasone 2 MG Tab PO SCH ×3 (08:09→16:48)
[2023-02-03] MEDS: levETIRAcetam 500 MG Tab PO SCH ×2 (08:09→20:57)
[2023-02-03] MEDS: LACOSAMIDE 100 MG PO SCH ×2 (08:12→20:56)
[2023-02-03] MEDS ORDERED: Divalproex Sodium 250 MG Tab.ER PO ONE (20:51)
[2023-02-03] MEDS: Sennosides/Docusate Sodium 50-8.6 MG Tab PO SCH (20:57)
[2023-02-04] MEDS: Dexamethasone 2 MG Tab PO SCH ×3 (10:28→17:15)
[2023-02-04] MEDS: Cholecalciferol (Vitamin D3) 25 MCG Tab PO SCH (10:28)
[2023-02-04] MEDS: Divalproex Sodium 250 MG Tab.ER PO SCH ×2 (10:29→20:36)
[2023-02-04] MEDS: levETIRAcetam 500 MG Tab PO SCH ×2 (10:30→20:37)
[2023-02-04] MEDS: LACOSAMIDE 100 MG PO SCH ×2 (10:32→20:38)
[2023-02-04] MEDS: Sennosides/Docusate Sodium 50-8.6 MG Tab PO SCH (20:37)
[2023-02-05] MEDS: Cholecalciferol (Vitamin D3) 25 MCG Tab PO SCH (08:51)
[2023-02-05] MEDS: Dexamethasone 2 MG Tab PO SCH ×2 (08:51→12:22)
[2023-02-05] MEDS: levETIRAcetam 500 MG Tab PO SCH (08:52)
[2023-02-05] MEDS: Divalproex Sodium 250 MG Tab.ER PO SCH (08:52)
[2023-02-05] MEDS ORDERED: LACOSAMIDE 100 MG PO SCH (09:00)
[2023-02-05 15:11] VITALS: BP 137/46; PULSE 97
== END 2023-02-05 15:15 | disposition home or self-care (01) | DRG 948 ==
LOC: DL.MS 12:21 → UNDOADMIN 12:51 → DL.MS 12:51 → UNDOADMIN 21:55
PROVIDERS: ADMIT Internal Medicine; ATTEND Internal Medicine
DX: R53.1 Weakness (principal); G40.101 Localization-related (focal) (partial) symptomatic epilepsy and epileptic syndromes with simple partial seizures, not intractable, with status epilepticus; E24.9 Cushing's syndrome, unspecified; I10 Essential (primary) hypertension; M19.90 Unspecified osteoarthritis, unspecified site; G43.909 Migraine, unspecified, not intractable, without status migrainosus; G47.33 Obstructive sleep apnea (adult) (pediatric); E78.00 Pure hypercholesterolemia, unspecified; K59.09 Other constipation; E66.9 Obesity, unspecified; E55.9 Vitamin D deficiency, unspecified; Z87.442 Personal history of urinary calculi; Z98.890 Other specified postprocedural states; Z88.1 Allergy status to other antibiotic agents; Z88.8 Allergy status to other drugs, medicaments and biological substances; Z88.2 Allergy status to sulfonamides; Z79.899 Other long term (current) drug therapy; Z86.16 Personal history of COVID-19; Z68.30 Body mass index [BMI] 30.0-30.9, adult; Z90.89 Acquired absence of other organs; Z85.841 Personal history of malignant neoplasm of brain
CPT/HCPCS: 97110-GO; 97110-GP; 97112-GO; 97116-GP; 97161-GP; 97165-GO; 97530-GO; 97530-GP; A9270-GY; J8540

== ENCOUNTER 2023-03-15 16:53 | Emergency (ER) | payer OTHER ==
[2023-03-15 17:14] VITALS: BP 134/89; PULSE 75
== END 2023-03-15 18:29 | disposition home or self-care (01) ==
LOC: DL.ED 16:53
DX: M25.511 Pain in right shoulder (principal); M25.561 Pain in right knee; E66.9 Obesity, unspecified; Z86.16 Personal history of COVID-19; Z79.899 Other long term (current) drug therapy; Z88.1 Allergy status to other antibiotic agents; Z88.2 Allergy status to sulfonamides; Z88.8 Allergy status to other drugs, medicaments and biological substances; W18.30XA Fall on same level, unspecified, initial encounter
CPT/HCPCS: 73030-RT; 73562-RT; 99283

== ENCOUNTER 2023-03-20 20:22 | Emergency (ER) | payer OTHER ==
[2023-03-20] MEDS ORDERED: Sodium Chloride 0.9% 10 ML Syringe FLUSH PRN (20:38)
[2023-03-20 21:02] LABS: HEMATOCRIT 39.9 % (40.0-54.0); HEMOGLOBIN 13.7 g/dL (14.0-18.0); MEAN CORPUSCULAR HGB CONC 34.3 g/dL (33.0-35.0); MEAN CORPUSCULAR VOLUME 96.1 fL (80-100); PLATELET COUNT,PLT 157 10^3/uL (150-450); RED BLOOD CELL COUNT 4.15 10^6/uL (4.6-6.2); WHITE BLOOD CELL COUNT,WBC 4.5 10^3/uL (5.0-10.0)
[2023-03-20 21:06] LABS: BASOPHILS PERCENT AUTO 0.2 % (0.0-1.0); EOSINOPHILS PERCENT AUTO 0.4 % (1.0-3.0); LYMPHOCYTES PERCENT AUTO 22.9 % (20.5-50.1); MONOCYTES PERCENT AUTO 14.7 % (2-8); NEUTROPHILS PERCENT AUTO 61.8 % (42.2-75.2)
[2023-03-20 21:10] VITALS: PULSE 76
[2023-03-20 21:12] LABS: LACTIC ACID 1.6 mmol/L (0.4-2.0)
[2023-03-20 21:19] LABS: A/G RATIO 0.94; ALBUMIN 3.2 g/dL (3.4-5.0); ANION GAP 16.4 mEq/L (7-13); BILIRUBIN TOTAL 0.4 mg/dL (0.2-1.0); BUN/CREATININE RATIO 19.1 (No establ ref range); C-REACTIVE PROTEIN 0.75 ng/dL (<=0.30); CALCIUM 9.2 mg/dL (8.5-10.1); CREATININE 0.94 mg/dL (0.70-1.30); EST CRCL DRUG DOSING (CG) 79.06 mL/min; POTASSIUM,K 4.4 mmol/L (3.5-5.1); PROTEIN TOTAL,TP 6.6 g/dL (6.4-8.2)
[2023-03-20 21:23] VITALS: BP 127/82
[2023-03-20 21:23] LABS: INR 0.9 (0.9-1.2); PROTHROMBIN TIME 8.9 SEC (9.0-12.0)
[2023-03-20 21:39] LABS: BAND PERCENT MAN 4 %; EOSINOPHILS PERCENT MAN 1 % (1-3); LYMPHOCYTES PERCENT MAN 23 % (20-50); MONOCYTES PERCENT MAN 8 % (2-8); SEG NEUTROPHILS PERCENT MAN 64 % (42-75)
== END 2023-03-20 21:29 | disposition home or self-care (01) ==
LOC: DL.ED 20:22
DX: K64.8 Other hemorrhoids (principal); E66.9 Obesity, unspecified; Z88.0 Allergy status to penicillin; Z88.2 Allergy status to sulfonamides; Z88.8 Allergy status to other drugs, medicaments and biological substances; Z68.35 Body mass index [BMI] 35.0-35.9, adult
CPT/HCPCS: 36415; 80053; 80307; 83605; 85025; 85610; 86140; 99283; 99284; J3490

== ENCOUNTER 2023-04-05 07:34 | Day surgery (SDC) | payer OTHER ==
[~2023-04-05 07:34] MED LIST: Dextrose 5%-0.45% NaCl 1,000 ML IV SCH
[2023-04-05] MEDS ORDERED: Midazolam 1 MG/ML 2 ML SDV ONE (08:26)
[2023-04-05] MEDS ORDERED: fentaNYL 100 MCG/2 ML SDV ONE (08:26)
[2023-04-05] MEDS ORDERED: fentaNYL 100 MCG/2 ML SDV IV ONE ×4 (08:30→08:44)
[2023-04-05] MEDS ORDERED: Midazolam 1 MG/ML 2 ML SDV IV ONE ×6 (08:32→08:42)
[2023-04-05 10:21] VITALS: BP 124/75; PULSE 67
== END 2023-04-05 10:30 | disposition home or self-care (01) ==
LOC: DL.ENDO 07:34
PROVIDERS: ATTEND Internal Medicine Gastroenterology
DX: K62.5 Hemorrhage of anus and rectum (principal); K64.8 Other hemorrhoids; E78.5 Hyperlipidemia, unspecified; G47.33 Obstructive sleep apnea (adult) (pediatric); Z98.890 Other specified postprocedural states; Z79.899 Other long term (current) drug therapy; Z88.2 Allergy status to sulfonamides; Z88.1 Allergy status to other antibiotic agents; Z88.5 Allergy status to narcotic agent
CPT/HCPCS: J2250; J3010; J7042

== ENCOUNTER 2023-06-13 13:38 | Emergency (ER) | payer OTHER | END 2023-06-13 16:29 | disposition left against medical advice (07) | LOC: DL.ED 13:38 | DX: Z53.21 Procedure and treatment not carried out due to patient leaving prior to being seen by health care provider (principal) | CPT/HCPCS: 73660-T5 ==

== ENCOUNTER 2024-04-02 23:33 | Emergency (ER) | payer OTHER ==
[2024-04-03 00:58] VITALS: BP 121/80; PULSE 67
[2024-04-03 01:04] LABS: BASOPHILS PERCENT AUTO 0.8 % (0.0-1.0); EOSINOPHILS PERCENT AUTO 1.3 % (1.0-3.0); HEMATOCRIT 44.5 % (40.0-54.0); HEMOGLOBIN 15.5 g/dL (14.0-18.0); LYMPHOCYTES PERCENT AUTO 31.4 % (20.5-50.1); MEAN CORPUSCULAR HEMOGLOBIN 32.3 pg (27.0-34.0); MEAN CORPUSCULAR HGB CONC 34.8 g/dL (33.0-35.0); MEAN CORPUSCULAR VOLUME 92.7 fL (80-100); MONOCYTES PERCENT AUTO 11.8 % (2-8); NEUTROPHILS PERCENT AUTO 54.7 % (42.2-75.2); PLATELET COUNT,PLT 178 10^3/uL (150-450)
[2024-04-03 01:14] LABS: A/G RATIO 1.3; ALANINE AMINOTRANSFERASE,ALT 61 U/L (16-63); ALBUMIN 3.9 g/dL (3.4-5.0); ALKALINE PHOSPHATASE 107 U/L (46-116); ASPARTATE AMNIOTRANSFERASE,AST 23 U/L (15-37); BILIRUBIN TOTAL 0.3 mg/dL (0.2-1.0); BLOOD UREA NITROGEN,BUN 19 mg/dL (7-18); BUN/CREATININE RATIO 17.9 (No establ ref range); CALCIUM 9.7 mg/dL (8.5-10.1); CARBON DIOXIDE,CO2 29 mmol/L (21-32); CHLORIDE,CL 104 mmol/L (98-107); CREATININE 1.06 mg/dL (0.70-1.30); GLUCOSE RANDOM 139 mg/dL (70-99); MAGNESIUM 1.9 mg/dL (1.8-2.4); SODIUM,NA 139 mmol/L (136-145)
[2024-04-03 01:15] LABS: ESTIMATED GFR 83 mL/min (>=60)
[2024-04-03 01:42] LABS: APPEARANCE,URINE CLEAR (CLEAR); BILIRUBIN,URINE NEGATIVE (NEGATIVE); COLOR,URINE YELLOW (YELLOW); GLUCOSE,URINE NEGATIVE (NEGATIVE); KETONES,URINE NEGATIVE (NEGATIVE); LEUKOCYTE ESTERASE,URINE NEGATIVE (NEGATIVE); NITRITE,URINE NEGATIVE (NEGATIVE); OCCULT BLOOD,URINE TRACE-INTACT (NEGATIVE); PROTEIN,URINE NEGATIVE (NEGATIVE); UROBILINOGEN,URINE 0.2 mg/dL (0.2-1.0)
[2024-04-03 02:06] LABS: BACTERIA,URINE RARE /HPF (0-FEW/HPF); EPITHELIAL CELLS,URINE RARE /HPF (NOT SEEN); RBC,URINE 0-5 /HPF (0-5); WBC,URINE 0-5 /HPF (0-5/HPF)
[2024-04-03] MEDS: Take Home: LORazepam 1 MG Tab, 2 Tab Pack PO ONE (02:44)
[2024-04-05 19:42] LABS: KEPPRA 33 ug/mL (10-40)
== END 2024-04-03 02:57 | disposition home or self-care (01) ==
LOC: DL.ED 23:33
DX: R56.9 Unspecified convulsions (principal); E66.9 Obesity, unspecified; Z86.16 Personal history of COVID-19; Z90.89 Acquired absence of other organs; Z88.0 Allergy status to penicillin; Z88.2 Allergy status to sulfonamides; Z88.5 Allergy status to narcotic agent; Z79.899 Other long term (current) drug therapy
CPT/HCPCS: 36415; 80053; 80177; 81001; 83735; 85025; 99284; A9270

== ENCOUNTER 2024-06-09 12:35 | Emergency (ER) | payer OTHER ==
[2024-06-09] MEDS ORDERED: Sodium Chloride 0.9% 10 ML Syringe FLUSH PRN (12:40)
[2024-06-09 13:28] LABS: BASOPHILS PERCENT AUTO 0.3 % (0.0-1.0); HEMATOCRIT 44.9 % (40.0-54.0); HEMOGLOBIN 15.8 g/dL (14.0-18.0); LYMPHOCYTES PERCENT AUTO 35.8 % (20.5-50.1); MEAN CORPUSCULAR HGB CONC 35.2 g/dL (33.0-35.0); MEAN CORPUSCULAR VOLUME 93.7 fL (80-100); MONOCYTES PERCENT AUTO 13.1 % (2-8); NEUTROPHILS PERCENT AUTO 49.8 % (42.2-75.2); PLATELET COUNT,PLT 160 10^3/uL (150-450); RED BLOOD CELL COUNT 4.79 10^6/uL (4.6-6.2); WHITE BLOOD CELL COUNT,WBC 3.8 10^3/uL (5.0-10.0)
[2024-06-09 13:30] LABS: APPEARANCE,URINE CLEAR (CLEAR); BILIRUBIN,URINE NEGATIVE (NEGATIVE); COLOR,URINE YELLOW (YELLOW); GLUCOSE,URINE NEGATIVE (NEGATIVE); KETONES,URINE TRACE (NEGATIVE); LEUKOCYTE ESTERASE,URINE NEGATIVE (NEGATIVE); NITRITE,URINE NEGATIVE (NEGATIVE); OCCULT BLOOD,URINE NEGATIVE (NEGATIVE); PROTEIN,URINE NEGATIVE (NEGATIVE); UROBILINOGEN,URINE 0.2 mg/dL (0.2-1.0)
[2024-06-09] MEDS: Acetaminophen 500 MG Tab PO ONE (13:38)
[2024-06-09 13:52] LABS: A/G RATIO 1.1; ALBUMIN 3.7 g/dL (3.4-5.0); ANION GAP 14.2 mEq/L (7-13); BILIRUBIN TOTAL 0.3 mg/dL (0.2-1.0); BUN/CREATININE RATIO 17.6 (No establ ref range); C-REACTIVE PROTEIN 0.6 ng/dL (<=0.50); CREATININE 0.91 mg/dL (0.70-1.30); EST CRCL DRUG DOSING (CG) 85.75 mL/min; MAGNESIUM 1.9 mg/dL (1.8-2.4); POTASSIUM,K 4.2 mmol/L (3.5-5.1); PROTEIN TOTAL,TP 7.1 g/dL (6.4-8.2)
[2024-06-09 13:53] LABS: LACTIC ACID 1.4 mmol/L (0.4-2.0)
[2024-06-09 14:59] VITALS: BP 122/76; PULSE 61
== END 2024-06-09 15:54 | disposition home or self-care (01) ==
LOC: DL.ED 12:35
DX: I61.9 Nontraumatic intracerebral hemorrhage, unspecified (principal); R55 Syncope and collapse; E78.00 Pure hypercholesterolemia, unspecified; E66.9 Obesity, unspecified; Z88.0 Allergy status to penicillin; Z88.2 Allergy status to sulfonamides; Z88.8 Allergy status to other drugs, medicaments and biological substances; Z79.899 Other long term (current) drug therapy; Z86.16 Personal history of COVID-19; Z68.32 Body mass index [BMI] 32.0-32.9, adult
CPT/HCPCS: 36415; 70450; 80053; 81003; 83605; 83735; 85025; 86140; 93005; 99285; A9270

== ENCOUNTER 2024-06-13 10:50 | Emergency (ER) | payer OTHER ==
[2024-06-13 12:13] LABS: BASOPHILS PERCENT AUTO 0.7 % (0.0-1.0); HEMATOCRIT 44.3 % (40.0-54.0); HEMOGLOBIN 15.4 g/dL (14.0-18.0); LYMPHOCYTES PERCENT AUTO 39.8 % (20.5-50.1); MEAN CORPUSCULAR HEMOGLOBIN 32.7 pg (27.0-34.0); MEAN CORPUSCULAR HGB CONC 34.8 g/dL (33.0-35.0); MEAN CORPUSCULAR VOLUME 94.1 fL (80-100); MONOCYTES PERCENT AUTO 12.6 % (2-8); NEUTROPHILS PERCENT AUTO 44.9 % (42.2-75.2); PLATELET COUNT,PLT 157 10^3/uL (150-450); RED BLOOD CELL COUNT 4.71 10^6/uL (4.6-6.2); WHITE BLOOD CELL COUNT,WBC 2.9 10^3/uL (5.0-10.0)
[2024-06-13 12:31] LABS: PROTHROMBIN TIME 9.9 SEC (9.0-12.0); PTT,PARTIAL THROMBOPLSTIN TIME 26.8 SEC (22.0-34.0)
[2024-06-13 12:36] LABS: A/G RATIO 1.2; ALBUMIN 3.7 g/dL (3.4-5.0); ANION GAP 11.3 mEq/L (7-13); BILIRUBIN TOTAL 0.3 mg/dL (0.2-1.0); BUN/CREATININE RATIO 18.1 (No establ ref range); C-REACTIVE PROTEIN 0.56 ng/dL (<=0.50); CALCIUM 9.2 mg/dL (8.5-10.1); CREATININE 0.94 mg/dL (0.70-1.30); EST CRCL DRUG DOSING (CG) 77.24 mL/min; LACTIC ACID 0.9 mmol/L (0.4-2.0); POTASSIUM,K 4.3 mmol/L (3.5-5.1); PROTEIN TOTAL,TP 6.9 g/dL (6.4-8.2)
[2024-06-13] MEDS: Acetaminophen 500 MG Tab PO ONE (13:27)
[2024-06-13 14:07] LABS: APPEARANCE,URINE CLEAR (CLEAR); BILIRUBIN,URINE NEGATIVE (NEGATIVE); COLOR,URINE YELLOW (YELLOW); GLUCOSE,URINE NEGATIVE (NEGATIVE); KETONES,URINE NEGATIVE (NEGATIVE); LEUKOCYTE ESTERASE,URINE NEGATIVE (NEGATIVE); NITRITE,URINE NEGATIVE (NEGATIVE); OCCULT BLOOD,URINE TRACE-INTACT (NEGATIVE); PH,URINE 7.5 (5.0-9.0); PROTEIN,URINE NEGATIVE (NEGATIVE); UROBILINOGEN,URINE 0.2 mg/dL (0.2-1.0)
[2024-06-13 14:20] LABS: AMORPHOUS SEDIMENT,URINE FEW /HPF (NOT SEEN); BACTERIA,URINE RARE /HPF (0-FEW/HPF); EPITHELIAL CELLS,URINE RARE /HPF (NOT SEEN); RBC,URINE 0-5 /HPF (0-5); WBC,URINE 0-5 /HPF (0-5/HPF)
[2024-06-13 14:25] VITALS: BP 123/81; PULSE 56
== END 2024-06-13 14:33 | disposition home or self-care (01) ==
LOC: DL.ED 10:50
DX: R56.9 Unspecified convulsions (principal); R41.0 Disorientation, unspecified; R53.1 Weakness; H02.401 Unspecified ptosis of right eyelid; Z85.841 Personal history of malignant neoplasm of brain; E78.00 Pure hypercholesterolemia, unspecified; E66.9 Obesity, unspecified; Z88.0 Allergy status to penicillin; Z88.2 Allergy status to sulfonamides; Z88.8 Allergy status to other drugs, medicaments and biological substances; Z79.899 Other long term (current) drug therapy; Z86.16 Personal history of COVID-19; Z68.34 Body mass index [BMI] 34.0-34.9, adult
CPT/HCPCS: 36415; 70450; 80053; 81001; 82947; 83605; 83735; 84484; 85025; 85610; 85730; 86140; 93010; 99283; 99285; A9270-GY

== ENCOUNTER 2025-02-04 16:34 | Emergency (ER) | payer OTHER ==
[2025-02-04 17:24] VITALS: BP 120/74; PULSE 69
== END 2025-02-04 17:22 | disposition home or self-care (01) ==
LOC: DL.ED 16:34
DX: S80.02XA Contusion of left knee, initial encounter (principal); S40.012A Contusion of left shoulder, initial encounter; E78.00 Pure hypercholesterolemia, unspecified; Z88.0 Allergy status to penicillin; Z88.2 Allergy status to sulfonamides; Z79.899 Other long term (current) drug therapy; V00.141A Fall from scooter (nonmotorized), initial encounter; Y93.89 Activity, other specified
CPT/HCPCS: 73030; 73562; 99284; A9270

== ENCOUNTER 2025-03-24 14:21 | Emergency (ER) | payer MEDICARE, BC ==
[2025-03-24] MEDS: Ketorolac 30 MG/ML SDV IM ONE (16:42)
[2025-03-24] MEDS: Take Home: traMADol 50 MG, 4 Tab Pack PO ONE (17:58)
[2025-03-24 18:10] VITALS: BP 142/103; PULSE 57
== END 2025-03-24 18:00 | disposition home or self-care (01) ==
LOC: DL.ED 14:21
DX: M54.50 Low back pain, unspecified (principal); E78.00 Pure hypercholesterolemia, unspecified; E66.9 Obesity, unspecified; Z86.16 Personal history of COVID-19; Z79.899 Other long term (current) drug therapy; Z88.2 Allergy status to sulfonamides; Z88.8 Allergy status to other drugs, medicaments and biological substances; Z88.0 Allergy status to penicillin; Z68.34 Body mass index [BMI] 34.0-34.9, adult; W18.2XXA Fall in (into) shower or empty bathtub, initial encounter; Y92.231 Patient bathroom in hospital as the place of occurrence of the external cause
CPT/HCPCS: 71101-RT; 96372; 99283; A9270-GY; J1885

== ENCOUNTER 2025-04-11 20:49 | Emergency (ER) | payer MEDICARE, BC ==
[2025-04-12 00:35] VITALS: BP 127/76; PULSE 64
== END 2025-04-11 22:51 | disposition home or self-care (01) ==
LOC: DL.ED 20:49
DX: S40.011A Contusion of right shoulder, initial encounter (principal); E78.00 Pure hypercholesterolemia, unspecified; Z88.0 Allergy status to penicillin; Z88.2 Allergy status to sulfonamides; Z88.8 Allergy status to other drugs, medicaments and biological substances; Z79.899 Other long term (current) drug therapy; Z86.16 Personal history of COVID-19; W18.39XA Other fall on same level, initial encounter; Y93.89 Activity, other specified
CPT/HCPCS: 72070; 72100; 73030; 99284; A9270

== ENCOUNTER 2025-04-14 10:34 | Emergency (ER) | payer MEDICARE, BC ==
[2025-04-14] MEDS ORDERED: Sodium Chloride 0.9% 10 ML Syringe FLUSH PRN (10:57)
[2025-04-14 11:06] LABS: BASOPHILS PERCENT AUTO 0.5 % (0.0-1.0); EOSINOPHILS PERCENT AUTO 0.7 % (1.0-3.0); LYMPHOCYTES PERCENT AUTO 33.9 % (20.5-50.1); MONOCYTES PERCENT AUTO 11.9 % (2-8); NEUTROPHILS PERCENT AUTO 53.0 % (42.2-75.2); PLATELET COUNT,PLT 171 10^3/uL (150-450); RED BLOOD CELL COUNT 4.52 10^6/uL (4.6-6.2); WHITE BLOOD CELL COUNT,WBC 4.4 10^3/uL (5.0-10.0)
[2025-04-14 11:18] LABS: A/G RATIO 1.1; ALANINE AMINOTRANSFERASE,ALT 55 U/L (16-63); ASPARTATE AMNIOTRANSFERASE,AST 21 U/L (15-37); BILIRUBIN TOTAL 0.4 mg/dL (0.2-1.0); BLOOD UREA NITROGEN,BUN 18 mg/dL (7-18); CARBON DIOXIDE,CO2 29 mmol/L (21-32); CHLORIDE,CL 103 mmol/L (98-107); CREATININE 1.05 mg/dL (0.70-1.30); GLUCOSE RANDOM 94 mg/dL (70-99); POTASSIUM,K 4.5 mmol/L (3.5-5.1); PROTEIN TOTAL,TP 7.3 g/dL (6.4-8.2); SODIUM,NA 141 mmol/L (136-145)
[2025-04-14 11:23] LABS: ESTIMATED GFR 84 mL/min (>=60)
[2025-04-14 12:18] LABS: APPEARANCE,URINE CLEAR (CLEAR); GLUCOSE,URINE NEGATIVE (NEGATIVE); OCCULT BLOOD,URINE TRACE-INTACT (NEGATIVE)
[2025-04-14 12:35] LABS: EPITHELIAL CELLS,URINE NOT SEEN /HPF (NOT SEEN)
[2025-04-14 12:53] VITALS: BP 106/83; PULSE 64
== END 2025-04-14 13:13 ==
LOC: DL.ED 10:34
DX: S06.5X0A Traumatic subdural hemorrhage without loss of consciousness, initial encounter (principal); R56.9 Unspecified convulsions; E66.9 Obesity, unspecified; Z68.32 Body mass index [BMI] 32.0-32.9, adult; Z86.16 Personal history of COVID-19; Z88.0 Allergy status to penicillin; Z88.2 Allergy status to sulfonamides; Z88.8 Allergy status to other drugs, medicaments and biological substances; Z79.899 Other long term (current) drug therapy; W01.198A Fall on same level from slipping, tripping and stumbling with subsequent striking against other object, initial encounter
CPT/HCPCS: 36415; 70450; 72125; 73130; 80053; 81001; 83605; 85025; 87040; 87186; 96374; 99285; A9270; J1953